=== PATIENT | female | born 1945 | race African-American/Black ===

== ENCOUNTER 2019-02-04 16:12 | Emergency (ER) | payer MEDICAID, MEDICARE ==
[~2019-02-04] VITALS: Ht 160 cm; Wt 91.0 kg
[~2019-02-04 16:12] MED LIST: AMIT25TA9 PO; AMLO2.5T45 PO; ASPI-1159 PO; CELE100C PO; CHOL500010 PO; PRO AIR INHALER INH; RANI150C12 PO
[2019-02-04] MEDS ORDERED: GABA-531 PO (16:34)
[2019-02-04] MEDS ORDERED: HYDROCODONE/ACETAMINOPHEN 5/325MG TABLET PO ONE (20:45)
[2019-02-04] MEDS ORDERED: KETOROLAC 15MG/ML VIAL IM ONE (22:30)
[2019-02-04 22:35] VITALS: BP 142/71
== END 2019-02-04 22:39 | disposition home or self-care (01) ==
LOC: ER 16:12
DX: G89.29 Other chronic pain (principal); M54.5 Low back pain; M25.551 Pain in right hip
CPT/HCPCS: 73502; 96372; 99283; J1885

== ENCOUNTER 2019-10-23 06:53 | Inpatient (IN) | payer MEDICARE, BC ==
[~2019-10-23] VITALS: Ht 162.6 cm; Wt 90.7 kg
[2019-10-23] VITALS (15 sets, daily range): BP systolic 96–157; BP diastolic 39–155
[~2019-10-23 06:53] MED LIST changes: -AMIT25TA9 PO; -ASPI-1159 PO; +ASPI-1497 PO; -CELE100C PO; +CYCL5TAB PO; +DULO60CA64 PO; +GABA-531 PO; +LACTATED RINGERS 1,000 ML IV SCH; +TRAZ150T78 MT
[2019-10-23] MEDS ORDERED: LIDOCAINE HCL/EPINEPHRINE 1%-EPI 1:100,000 20 ML VIAL ONE (07:39)
[2019-10-23] MEDS ORDERED: BACITRACIN 50,000 UNITS/VIAL ONE (07:39)
[2019-10-23] MEDS ORDERED: THROMBIN (BOVINE) 5000 UNITS/VIAL TOP ONE (07:39)
[2019-10-23 08:31] LABS: PARTIAL THROMBOPLASTIN TIME 25.9 sec (23.4-31.0); PROTHROMBIN TIME 10.5 sec (9.6-11.0)
[2019-10-23] MEDS ORDERED: MIDAZOLAM HCL 2 MG/2 ML VIAL ONE (08:37)
[2019-10-23] MEDS ORDERED: ROCURONIUM BROMIDE 10MG/ML VIAL 5ML IV ONE (08:37)
[2019-10-23] MEDS ORDERED: FENTANYL CITRATE/PF 50MCG/ML 2ML VIAL ONE (08:37)
[2019-10-23] MEDS ORDERED: PROPOFOL 200MG/20ML VIAL IV ONE (08:37)
[2019-10-23] MEDS ORDERED: ONDANSETRON HCL 4MG/2ML INJ IV PRN (11:45)
[2019-10-23] MEDS ORDERED: LABETALOL 5MG/ML SYR 20 MG/4 ML SYRINGE IV PRN (11:45)
[2019-10-23] MEDS ORDERED: MEPERIDINE HCL/PF 25MG/ML CPJ IV PRN (11:45)
[2019-10-23] MEDS ORDERED: HYDROMORPHONE HCL/PF 2MG/ML CPJ IV PRN (11:45)
[2019-10-23] MEDS ORDERED: NALOXONE INJ IV PRN (13:45)
[2019-10-23] MEDS ORDERED: ONDANSETRON INJ IV PRN (14:00)
[2019-10-23] MEDS ORDERED: IPRATROPIUM/ALBUTEROL 0.5-3(2.5)MG/3ML NEB HHN PRN (14:15)
[2019-10-23] MEDS ORDERED: LACTULOSE 20G/30ML UDC PO PRN (14:30)
[2019-10-23] MEDS ORDERED: CLONIDINE 0.1MG TABLET PO PRN (14:30)
[2019-10-23] MEDS: MORPHINE SULFATE 2 MG/ML CPJ (NOT FOR IM USE) IV PRN ×2 (14:31→21:09)
[2019-10-23] MEDS ORDERED: HYDROMORPHONE PCA 10MG/50ML IV PRN (14:45)
[2019-10-23] MEDS: DIPHENHYDRAMINE 50MG/ML VIAL IV PRN ×2 (15:22→21:09)
[2019-10-23] MEDS: DEXT 5%/0.45% NACL KCL 20MEQ/L 1,000 ML IV SCH (16:35)
[2019-10-23] MEDS: CEFAZOLIN 1000MG PREMIX 50 ML IV SCH (16:35)
[2019-10-23] MEDS: MONTELUKAST SODIUM 10MG TABLET PO SCH (16:35)
[2019-10-23] MEDS: IPRATROPIUM/ALBUTEROL 0.5-3(2.5)MG/3ML NEB HHN SCH (20:07)
[2019-10-23] MEDS: FLUTICASONE PROPIONATE 50MCG/SPRAY BOTTLE BOTHNSTRLS SCH (21:09)
[2019-10-24] VITALS (83 sets, daily range): BP systolic 93–171; BP diastolic 40–112
[2019-10-24] MEDS: CEFAZOLIN 1000MG PREMIX 50 ML IV SCH ×3 (01:07→19:08)
[2019-10-24] MEDS: IPRATROPIUM/ALBUTEROL 0.5-3(2.5)MG/3ML NEB HHN SCH ×3 (02:32→14:38)
[2019-10-24] MEDS: DIPHENHYDRAMINE 50MG/ML VIAL IV PRN (05:29)
[2019-10-24] MEDS: MORPHINE SULFATE 2 MG/ML CPJ (NOT FOR IM USE) IV PRN (05:30)
[2019-10-24] MEDS: DEXT 5%/0.45% NACL KCL 20MEQ/L 1,000 ML IV SCH ×2 (05:30→17:00)
[2019-10-24 07:44] LABS: LYMPHOCYTES % 11.3 % (20.0-50.0); MEAN CORPUSCULAR VOLUME 71.5 fL (81.0-99.0); MEAN PLATELET VOLUME 11.3 fl (7.4-10.4); MONOCYTES % 5.8 % (2.0-8.0); NEUTROPHILS % 82.9 % (40.0-76.0); PLATELET 192 x1000/uL (130-400); RED BLOOD CELL COUNT 2.92 mill/uL (4.2-5.4)
[2019-10-24 07:50] LABS: HEMOGLOBIN. 6.7 g/dL (12.0-16.0)
[2019-10-24 07:51] LABS: CHLORIDE 107 mEq/L (98-107); HEMATOCRIT. 20.9 % (36.0-48.0)
[2019-10-24] MEDS: FLUTICASONE PROPIONATE 50MCG/SPRAY BOTTLE BOTHNSTRLS SCH ×2 (09:00→21:35)
[2019-10-24] MEDS: DOCUSATE SODIUM 250MG CAPSULE PO SCH (09:32)
[2019-10-24] MEDS ORDERED: ZOLPIDEM TARTRATE 5MG TABLET PO PRN (10:30)
[2019-10-24 11:20] LABS: HEMATOCRIT 26.4 % (36.0-48.0); HEMOGLOBIN 8.4 g/dL (12.0-16.0)
[2019-10-24 12:15] LABS: TOTAL IRON BINDING CAPACITY 269 ug/dL (250-450)
[2019-10-24] MEDS: MONTELUKAST SODIUM 10MG TABLET PO SCH (17:00)
[2019-10-24 18:11] LABS: HEMATOCRIT 29.5 % (36.0-48.0); HEMOGLOBIN 9.4 g/dL (12.0-16.0)
[2019-10-24] MEDS: FERROUS SULFATE 325MG TABLET PO SCH (19:08)
[2019-10-25] VITALS (17 sets, daily range): BP systolic 90–136; BP diastolic 48–95
[2019-10-25] MEDS: MORPHINE SULFATE 2 MG/ML CPJ (NOT FOR IM USE) IV PRN ×2 (00:05→03:40)
[2019-10-25 05:58] LABS: CHLORIDE 104 mEq/L (98-107)
[2019-10-25 06:31] LABS: BASOPHILS % 0.3 % (0.0-2.0); EOSINOPHILS % 0.3 % (0.0-5.0); HEMATOCRIT. 27.1 % (36.0-48.0); HEMOGLOBIN. 8.5 g/dL (12.0-16.0); LYMPHOCYTES % 24.7 % (20.0-50.0); MEAN CORPUSCULAR HEMOGLOBIN 22.6 pg (28.0-32.0); MEAN CORPUSCULAR VOLUME 71.6 fL (81.0-99.0); MEAN PLATELET VOLUME 11.5 fl (7.4-10.4); MONOCYTES % 7.9 % (2.0-8.0); NEUTROPHILS % 66.8 % (40.0-76.0); PLATELET 177 x1000/uL (130-400); RED BLOOD CELL COUNT 3.78 mill/uL (4.2-5.4); RED CELL DISTRIBUTION WIDTH 15.5 % (11.6-14.6)
[2019-10-25] MEDS: DEXT 5%/0.45% NACL KCL 20MEQ/L 1,000 ML IV SCH ×2 (08:00→21:10)
[2019-10-25] MEDS: FLUTICASONE PROPIONATE 50MCG/SPRAY BOTTLE BOTHNSTRLS SCH ×2 (08:30→21:10)
[2019-10-25] MEDS: FERROUS SULFATE 325MG TABLET PO SCH ×2 (08:31→16:21)
[2019-10-25] MEDS: DOCUSATE SODIUM 250MG CAPSULE PO SCH (08:31)
[2019-10-25] MEDS: IPRATROPIUM/ALBUTEROL 0.5-3(2.5)MG/3ML NEB HHN SCH ×2 (10:29→14:50)
[2019-10-25] MEDS: MONTELUKAST SODIUM 10MG TABLET PO SCH (16:21)
[2019-10-26] VITALS: BP 124/59
[2019-10-26 04:00] VITALS: BP 118/61
[2019-10-26] MEDS: DEXT 5%/0.45% NACL KCL 20MEQ/L 1,000 ML IV SCH (06:35)
[2019-10-26 06:45] LABS: BASOPHILS % 0.5 % (0.0-2.0); EOSINOPHILS % 1.8 % (0.0-5.0); HEMATOCRIT. 30.6 % (36.0-48.0); HEMOGLOBIN. 9.5 g/dL (12.0-16.0); LYMPHOCYTES % 25.1 % (20.0-50.0); MEAN CORPUSCULAR HEMOGLOBIN 22.5 pg (28.0-32.0); MEAN CORPUSCULAR VOLUME 72.2 fL (81.0-99.0); MEAN PLATELET VOLUME 10.4 fl (7.4-10.4); MONOCYTES % 7.3 % (2.0-8.0); NEUTROPHILS % 65.3 % (40.0-76.0); PLATELET 184 x1000/uL (130-400); RED BLOOD CELL COUNT 4.23 mill/uL (4.2-5.4); RED CELL DISTRIBUTION WIDTH 15.2 % (11.6-14.6)
[2019-10-26 06:54] LABS: CHLORIDE 104 mEq/L (98-107)
[2019-10-26 06:59] LABS: PHOSPHORUS 2.8 mg/dL (2.5-4.9)
[2019-10-26 08:00] VITALS: BP 118/50
[2019-10-26] MEDS ORDERED: LACTULOSE 20G/30ML UDC PO SCH (08:30)
[2019-10-26] MEDS ORDERED: ZOLPIDEM TARTRATE 5MG TABLET PO PRN (08:30)
[2019-10-26] MEDS: FLUTICASONE PROPIONATE 50MCG/SPRAY BOTTLE BOTHNSTRLS SCH (09:32)
[2019-10-26] MEDS: FERROUS SULFATE 325MG TABLET PO SCH ×2 (09:32→17:15)
[2019-10-26] MEDS: DOCUSATE SODIUM 250MG CAPSULE PO SCH (09:32)
[2019-10-26 12:00] VITALS: BP 115/64
[2019-10-26 16:00] VITALS: BP_SYST 122; BP_SYST 128; BP_DIAS 66
[2019-10-26] MEDS: MONTELUKAST SODIUM 10MG TABLET PO SCH (17:15)
[2019-10-26 20:00] VITALS: BP 129/70
[2019-10-27] VITALS: BP 98/53
[2019-10-27] MEDS: IPRATROPIUM/ALBUTEROL 0.5-3(2.5)MG/3ML NEB HHN SCH ×2 (00:56→22:15)
[2019-10-27 04:00] VITALS: BP 116/47
[2019-10-27 08:00] VITALS: BP 114/58
[2019-10-27] MEDS: DOCUSATE SODIUM 250MG CAPSULE PO SCH (08:55)
[2019-10-27] MEDS: FERROUS SULFATE 325MG TABLET PO SCH ×2 (08:55→17:36)
[2019-10-27] MEDS ORDERED: TRAMADOL 50MG TABLET PO NR (11:30)
[2019-10-27 12:00] VITALS: BP 126/68
[2019-10-27 16:00] VITALS: BP 131/63
[2019-10-27] MEDS: MONTELUKAST SODIUM 10MG TABLET PO SCH (17:36)
[2019-10-27] MEDS: TRAMADOL 50MG TABLET PO SCH (17:37)
[2019-10-27] MEDS: PREGABALIN 50 MG CAPSULE PO SCH (20:54)
[2019-10-28] VITALS: BP 114/59
[2019-10-28] MEDS: TRAMADOL 50MG TABLET PO SCH ×2 (02:11→09:04)
[2019-10-28 04:00] VITALS: BP 103/59
[2019-10-28] MEDS: IPRATROPIUM/ALBUTEROL 0.5-3(2.5)MG/3ML NEB HHN SCH ×2 (04:00→09:52)
[2019-10-28 08:00] VITALS: BP 122/65
[2019-10-28] MEDS: FERROUS SULFATE 325MG TABLET PO SCH (09:04)
[2019-10-28] MEDS: PREGABALIN 50 MG CAPSULE PO SCH (09:04)
[2019-10-28] MEDS: DOCUSATE SODIUM 250MG CAPSULE PO SCH (09:05)
[2019-10-28 10:56] VITALS: BP 134/82
== END 2019-10-28 12:18 | disposition home or self-care (01) | DRG 516 ==
LOC: OR 06:53 → MICUNO 06:54 → MICUSO 10-24 19:20 → 6EST 10-25 15:40
PROVIDERS: ADMIT Internal Medicine Geriatric Medicine; ATTEND Internal Medicine Geriatric Medicine
PROC: 0SP004Z Removal of Internal Fixation Device from Lumbar Vertebral Joint, Open Approach (ICD-10-PCS; principal; 2019-10-23)
PROC: 01NB0ZZ Release Lumbar Nerve, Open Approach (ICD-10-PCS; 2019-10-23)
PROC: BR191ZZ Fluoroscopy of Lumbar Spine using Low Osmolar Contrast (ICD-10-PCS; 2019-10-23)
DX: T84.226A Displacement of internal fixation device of vertebrae, initial encounter (principal); G82.20 Paraplegia, unspecified; M48.061 Spinal stenosis, lumbar region without neurogenic claudication; M19.90 Unspecified osteoarthritis, unspecified site; I10 Essential (primary) hypertension; E78.5 Hyperlipidemia, unspecified; D64.9 Anemia, unspecified; G96.19 Other disorders of meninges, not elsewhere classified; Z96.651 Presence of right artificial knee joint; K59.09 Other constipation; R26.89 Other abnormalities of gait and mobility; R73.9 Hyperglycemia, unspecified; Y83.8 Other surgical procedures as the cause of abnormal reaction of the patient, or of later complication, without mention of misadventure at the time of the procedure; J45.909 Unspecified asthma, uncomplicated; G47.00 Insomnia, unspecified; Z82.49 Family history of ischemic heart disease and other diseases of the circulatory system; Z90.49 Acquired absence of other specified parts of digestive tract; Z90.89 Acquired absence of other organs; Z98.51 Tubal ligation status; Z79.899 Other long term (current) drug therapy; Z98.1 Arthrodesis status; Z88.5 Allergy status to narcotic agent; Y92.89 Other specified places as the place of occurrence of the external cause
CPT/HCPCS: 36415; 72100; 76000; 80048; 83540; 83550; 83735; 84100; 85014; 85018; 85025; 86850; 86870; 86900; 86920; 88300; 88304; 88311; 93970; 94640; 95863; 95925; 95926; 95928; 95929; 97116; 97162; 97166; 97530; J0690; J1170; J1200; J2250; J2270; J2405; J2704; J2710; J3010; J3490

== ENCOUNTER → 2020-12-17 | Outpatient (CLI) | payer MEDICARE ==
[~2020-12-17] MED LIST changes: -CHOL500010 PO; -GABA-531 PO; +GABA-532 PO; -LACTATED RINGERS 1,000 ML IV SCH; -RANI150C12 PO
== END | disposition home or self-care (01) ==
LOC: LAB 11:08
PROVIDERS: ATTEND Neurological Surgery
DX: Z20.822 Contact with and (suspected) exposure to COVID-19 (principal)
CPT/HCPCS: 87426

== ENCOUNTER 2020-12-18 05:05 | Inpatient (IN) | payer MEDICARE, BC ==
[2020-12-18] VITALS (57 sets, daily range): BP systolic 90–140; BP diastolic 36–125
[~2020-12-18] VITALS: Ht 162.6 cm; Wt 93.4 kg
[2020-12-18] MEDS ORDERED: LACTATED RINGERS 1,000 ML IV SCH (05:30)
[2020-12-18] MEDS ORDERED: LIDOCAINE HCL/EPINEPHRINE 1%-EPI 1:100,000 20 ML VIAL ONE (05:32)
[2020-12-18] MEDS ORDERED: THROMBIN (BOVINE) 5000 UNITS/VIAL TOP ONE (05:33)
[2020-12-18] MEDS ORDERED: VANCOMYCIN HCL 1 GM/VIAL ONE (06:47)
[2020-12-18] MEDS ORDERED: GENTAMICIN SULF 40MG/ML 2ML VIAL ONE (06:47)
[2020-12-18] MEDS ORDERED: FENTANYL CITRATE/PF 50MCG/ML 2ML VIAL ONE (07:05)
[2020-12-18] MEDS ORDERED: MIDAZOLAM HCL 2 MG/2 ML VIAL ONE (07:06)
[2020-12-18] MEDS ORDERED: ROCURONIUM BROMIDE 10MG/ML VIAL 5ML IV ONE (07:06)
[2020-12-18] MEDS ORDERED: NEOSTIGMINE METHYLSULFATE 1MG/ML 10 ML VIAL ONE (07:06)
[2020-12-18] MEDS ORDERED: GLYCOPYRROLATE 0.2 MG/ML 2ML VIAL ONE ×3 (07:06→10:22)
[2020-12-18] MEDS ORDERED: PROPOFOL 200MG/20ML VIAL IV ONE (07:06)
[2020-12-18] MEDS ORDERED: DEXAMETHASONE 4MG/ML 1ML VIAL ONE (07:08)
[2020-12-18] MEDS ORDERED: LABETALOL HCL 5MG/ML VIAL 20ML IV ONE (07:36)
[2020-12-18] MEDS ORDERED: CEFAZOLIN SODIUM 1000MG/VIAL ONE (07:36)
[2020-12-18] MEDS ORDERED: ONDANSETRON HCL 4MG/2ML INJ ONE (07:36)
[2020-12-18] MEDS ORDERED: LIDOCAINE HCL/PF 1% 10 MG/ML 5ML VIAL ONE (07:36)
[2020-12-18] MEDS ORDERED: SODIUM CHLORIDE 0.9% 10ML VIAL ONE (07:36)
[2020-12-18] MEDS ORDERED: HYDROMORPHONE HCL/PF 2MG/ML (OR) ONE (08:05)
[2020-12-18] MEDS ORDERED: LABETALOL 5MG/ML SYR 20 MG/4 ML SYRINGE IV PRN (08:15)
[2020-12-18] MEDS ORDERED: HYDROMORPHONE HCL/PF 2MG/ML CPJ IV PRN (08:15)
[2020-12-18] MEDS ORDERED: MEPERIDINE HCL/PF 25MG/ML CPJ IV PRN (08:15)
[2020-12-18] MEDS ORDERED: ONDANSETRON HCL 4MG/2ML INJ IV PRN ×2 (08:15→12:30)
[2020-12-18] MEDS ORDERED: MORPHINE SULFATE 4 MG/ML CPJ (NOT FOR IM USE) IV PRN (10:30)
[2020-12-18] MEDS ORDERED: ONDANSETRON INJ IV PRN (12:15)
[2020-12-18] MEDS ORDERED: HYDROMORPHONE PCA 10MG/50ML IV PRN (12:15)
[2020-12-18] MEDS ORDERED: NALOXONE INJ IV PRN (12:15)
[2020-12-18] MEDS ORDERED: IPRATROPIUM/ALBUTEROL 0.5-3(2.5)MG/3ML NEB HHN PRN (12:30)
[2020-12-18] MEDS: DEXT 5%/LACTATED RINGERS 1,000 ML IV SCH ×3 (12:55→23:30)
[2020-12-18] MEDS: NICARDIPINE 100 MG in SODIUM CHLORIDE 0.9% 60 ML IV PRN (12:56)
[2020-12-18] MEDS ORDERED: MORPHINE SULFATE 2 MG/ML CPJ (NOT FOR IM USE) IV NR (13:00)
[2020-12-18] MEDS ORDERED: CEFAZOLIN SODIUM 1000MG/VIAL IV SCH (14:00)
[2020-12-18] MEDS: CEFAZOLIN 1000MG PREMIX 50 ML IV SCH ×2 (16:13→23:30)
[2020-12-18] MEDS: MONTELUKAST SODIUM 10MG TABLET PO SCH (16:13)
[2020-12-18] MEDS: IPRATROPIUM/ALBUTEROL 0.5-3(2.5)MG/3ML NEB HHN SCH ×2 (16:19→20:43)
[2020-12-18] MEDS: TRAZODONE HCL 50MG TABLET PO SCH (20:42)
[2020-12-18] MEDS: HYDROCODONE/ACETAMINOPHEN 5/325MG TABLET PO PRN (20:42)
[2020-12-18] MEDS: DIPHENHYDRAMINE INJ IV PRN (20:42)
[2020-12-18 21:06] LABS: HEMATOCRIT 27.1 % (36.0-48.0); HEMOGLOBIN 8.8 g/dL (12.0-16.0); MEAN CORPUSCULAR HEMOGLOBIN 22.1 pg (28.0-32.0); MEAN CORPUSCULAR VOLUME 68.5 fL (81.0-99.0); PLATELET 216 x1000/uL (130-400); RED BLOOD CELL COUNT 3.96 mill/uL (4.2-5.4); RED CELL DISTRIBUTION WIDTH 16.8 % (11.6-14.6)
[2020-12-18 21:22] LABS: CHLORIDE 107 mEq/L (98-107)
[2020-12-18 21:31] LABS: T4 FREE 1.12 ng/dL (0.76-1.46)
[2020-12-19] VITALS (91 sets, daily range): BP systolic 82–149; BP diastolic 17–122
[2020-12-19] MEDS: IPRATROPIUM/ALBUTEROL 0.5-3(2.5)MG/3ML NEB HHN SCH ×6 (00:48→21:07)
[2020-12-19 04:36] LABS: CHLORIDE 107 mEq/L (98-107)
[2020-12-19 04:40] LABS: HEMATOCRIT. 25.5 % (36.0-48.0); HEMOGLOBIN. 7.8 g/dL (12.0-16.0); LYMPHOCYTES % 10.1 % (20.0-50.0); MEAN CORPUSCULAR HEMOGLOBIN 21.1 pg (28.0-32.0); MEAN CORPUSCULAR VOLUME 68.6 fL (81.0-99.0); MEAN PLATELET VOLUME 10.1 fl (7.4-10.4); MONOCYTES % 4.8 % (2.0-8.0); NEUTROPHILS % 85.1 % (40.0-76.0); PLATELET 204 x1000/uL (130-400); RED BLOOD CELL COUNT 3.71 mill/uL (4.2-5.4); RED CELL DISTRIBUTION WIDTH 16.5 % (11.6-14.6)
[2020-12-19] MEDS: PANTOPRAZOLE 40MG DR TABLET PO SCH (06:16)
[2020-12-19] MEDS: DEXT 5%/LACTATED RINGERS 1,000 ML IV SCH ×3 (06:17→20:05)
[2020-12-19] MEDS: DOCUSATE SODIUM SUGAR FREE 100MG/10ML UDC NG SCH (08:44)
[2020-12-19] MEDS: DULOXETINE HCL 30MG DR CAPSULE PO SCH (08:44)
[2020-12-19] MEDS: FLUTICASONE PROPIONATE 50MCG/SPRAY BOTTLE BOTHNSTRLS SCH (08:44)
[2020-12-19] MEDS: AMLODIPINE 5MG TABLET PO SCH (08:44)
[2020-12-19] MEDS: NICARDIPINE 100 MG in SODIUM CHLORIDE 0.9% 60 ML IV PRN (08:45)
[2020-12-19] MEDS ORDERED: HYDROMORPHONE HCL/PF 2MG/ML CPJ IV NR (09:00)
[2020-12-19] MEDS ORDERED: ENOXAPARIN 30MG/0.3ML SYR SUBCUT SCH (09:00)
[2020-12-19] MEDS: DIPHENHYDRAMINE INJ IV PRN (09:03)
[2020-12-19 10:00] LABS: TOTAL IRON BINDING CAPACITY 288 ug/dL (250-450)
[2020-12-19] MEDS: CEFAZOLIN 1000MG PREMIX 50 ML IV SCH ×2 (10:07→15:18)
[2020-12-19] MEDS: HYDROCODONE/ACETAMINOPHEN 5/325MG TABLET PO PRN (11:37)
[2020-12-19] MEDS: MONTELUKAST SODIUM 10MG TABLET PO SCH (16:03)
[2020-12-19] MEDS: TRAZODONE HCL 50MG TABLET PO SCH (20:59)
[2020-12-20] VITALS (40 sets, daily range): BP systolic 96–147; BP diastolic 47–100
[2020-12-20] MEDS: IPRATROPIUM/ALBUTEROL 0.5-3(2.5)MG/3ML NEB HHN SCH ×6 (00:15→21:00)
[2020-12-20] MEDS: CEFAZOLIN 1000MG PREMIX 50 ML IV SCH ×2 (00:38→08:32)
[2020-12-20 04:47] LABS: BASOPHILS % 0.2 % (0.0-2.0); EOSINOPHILS % 0.3 % (0.0-5.0); HEMATOCRIT. 32.4 % (36.0-48.0); LYMPHOCYTES % 20.2 % (20.0-50.0); MEAN CORPUSCULAR HEMOGLOBIN 22.1 pg (28.0-32.0); MEAN CORPUSCULAR VOLUME 71.2 fL (81.0-99.0); MEAN PLATELET VOLUME 10.4 fl (7.4-10.4); MONOCYTES % 7.2 % (2.0-8.0); NEUTROPHILS % 72.1 % (40.0-76.0); PLATELET 213 x1000/uL (130-400); RED BLOOD CELL COUNT 4.54 mill/uL (4.2-5.4); RED CELL DISTRIBUTION WIDTH 18.1 % (11.6-14.6)
[2020-12-20 04:52] LABS: CHLORIDE 101 mEq/L (98-107)
[2020-12-20] MEDS: DEXT 5%/LACTATED RINGERS 1,000 ML IV SCH (05:34)
[2020-12-20] MEDS: PANTOPRAZOLE 40MG DR TABLET PO SCH (05:34)
[2020-12-20] MEDS: HYDROCODONE/ACETAMINOPHEN 5/325MG TABLET PO PRN (07:42)
[2020-12-20] MEDS: DIPHENHYDRAMINE INJ IV PRN (07:43)
[2020-12-20] MEDS: DOCUSATE SODIUM SUGAR FREE 100MG/10ML UDC NG SCH (09:10)
[2020-12-20] MEDS: AMLODIPINE 5MG TABLET PO SCH (09:10)
[2020-12-20] MEDS: DULOXETINE HCL 30MG DR CAPSULE PO SCH (09:10)
[2020-12-20] MEDS: FLUTICASONE PROPIONATE 50MCG/SPRAY BOTTLE BOTHNSTRLS SCH (09:11)
[2020-12-20] MEDS: MONTELUKAST SODIUM 10MG TABLET PO SCH (17:58)
[2020-12-20] MEDS: TRAZODONE HCL 50MG TABLET PO SCH (23:06)
[2020-12-21] VITALS: BP 113/52
[2020-12-21] MEDS: IPRATROPIUM/ALBUTEROL 0.5-3(2.5)MG/3ML NEB HHN SCH ×6 (00:37→20:41)
[2020-12-21 04:00] VITALS: BP 134/75
[2020-12-21] MEDS: DEXT 5%/LACTATED RINGERS 1,000 ML IV SCH ×3 (04:33→22:27)
[2020-12-21] MEDS: PANTOPRAZOLE 40MG DR TABLET PO SCH (06:22)
[2020-12-21 06:44] LABS: CHLORIDE 101 mEq/L (98-107)
[2020-12-21 06:52] LABS: BASOPHILS % 0.3 % (0.0-2.0); EOSINOPHILS % 1.2 % (0.0-5.0); HEMATOCRIT. 31.7 % (36.0-48.0); LYMPHOCYTES % 12.4 % (20.0-50.0); MEAN CORPUSCULAR HEMOGLOBIN 22.6 pg (28.0-32.0); MEAN CORPUSCULAR VOLUME 71.3 fL (81.0-99.0); MEAN PLATELET VOLUME 10.5 fl (7.4-10.4); MONOCYTES % 5.6 % (2.0-8.0); NEUTROPHILS % 80.5 % (40.0-76.0); PLATELET 213 x1000/uL (130-400); RED BLOOD CELL COUNT 4.45 mill/uL (4.2-5.4); RED CELL DISTRIBUTION WIDTH 17.5 % (11.6-14.6)
[2020-12-21 08:00] VITALS: BP 115/76
[2020-12-21] MEDS: FLUTICASONE PROPIONATE 50MCG/SPRAY BOTTLE BOTHNSTRLS SCH (09:06)
[2020-12-21] MEDS: DULOXETINE HCL 30MG DR CAPSULE PO SCH (09:07)
[2020-12-21] MEDS: DOCUSATE SODIUM SUGAR FREE 100MG/10ML UDC NG SCH (09:07)
[2020-12-21] MEDS: AMLODIPINE 5MG TABLET PO SCH (09:08)
[2020-12-21] MEDS ORDERED: BENZONATATE 100MG CAPSULE PO NR (11:30)
[2020-12-21] MEDS ORDERED: CEFTRIAXONE 1 G PREMIX 50 ML IV SCH (11:30)
[2020-12-21] MEDS ORDERED: LACTULOSE 20G/30ML UDC PO PRN (11:30)
[2020-12-21 12:00] VITALS: BP 134/70
[2020-12-21] MEDS: CEFTRIAXONE 1,000 MG in DEXTROSE 5% WATER 50 ML IV SCH (13:53)
[2020-12-21] MEDS ORDERED: GUAIFENESIN-DM 200MG-20MG/10ML UDC PO PRN (14:15)
[2020-12-21] MEDS ORDERED: BENZONATATE 100MG CAPSULE PO PRN (15:00)
[2020-12-21 16:00] VITALS: BP 122/65
[2020-12-21] MEDS ORDERED: POTASSIUM CHLORIDE 20MEQ TABLET SR PO NR (16:15)
[2020-12-21] MEDS: MONTELUKAST SODIUM 10MG TABLET PO SCH (17:52)
[2020-12-21 20:00] VITALS: BP 132/58
[2020-12-21] MEDS: TRAZODONE HCL 50MG TABLET PO SCH (20:20)
[2020-12-21] MEDS: BUDESONIDE 0.5MG/2ML NEB HHN SCH (20:40)
[2020-12-21] MEDS ORDERED: ZOLPIDEM TARTRATE 5MG TABLET PO PRN (21:00)
[2020-12-22] MEDS: IPRATROPIUM/ALBUTEROL 0.5-3(2.5)MG/3ML NEB HHN SCH ×4 (00:33→13:59)
[2020-12-22 04:00] VITALS: BP 145/83
[2020-12-22] MEDS: PANTOPRAZOLE 40MG DR TABLET PO SCH (06:44)
[2020-12-22 08:00] VITALS: BP 149/80
[2020-12-22] MEDS: DOCUSATE SODIUM SUGAR FREE 100MG/10ML UDC NG SCH ×2 (08:27→09:00)
[2020-12-22] MEDS: DULOXETINE HCL 30MG DR CAPSULE PO SCH (08:28)
[2020-12-22] MEDS: AMLODIPINE 5MG TABLET PO SCH (08:28)
[2020-12-22] MEDS: DEXT 5%/LACTATED RINGERS 1,000 ML IV SCH (08:31)
[2020-12-22] MEDS: FLUTICASONE PROPIONATE 50MCG/SPRAY BOTTLE BOTHNSTRLS SCH (08:32)
[2020-12-22] MEDS ORDERED: BISACODYL 5MG TABLET PO SCH (09:00)
[2020-12-22] MEDS: BUDESONIDE 0.5MG/2ML NEB HHN SCH (09:17)
[2020-12-22 12:00] VITALS: BP 157/81
[2020-12-22] MEDS: CEFTRIAXONE 1,000 MG in DEXTROSE 5% WATER 50 ML IV SCH (12:47)
[2020-12-22 16:00] VITALS: BP 150/81
[2020-12-22 16:34] VITALS: BP 149/80
== END 2020-12-22 17:35 | disposition home health service (06) | DRG 460 ==
LOC: OR 05:05 → MICUNO 05:06 → 6EST 12-20 11:27
PROVIDERS: ADMIT Internal Medicine Geriatric Medicine; ATTEND Internal Medicine Geriatric Medicine
PROC: 0RGA071 Fusion of Thoracolumbar Vertebral Joint with Autologous Tissue Substitute, Posterior Approach, Posterior Column, Open Approach (ICD-10-PCS; principal; 2020-12-18)
PROC: 01N80ZZ Release Thoracic Nerve, Open Approach (ICD-10-PCS; 2020-12-18)
PROC: 01NB0ZZ Release Lumbar Nerve, Open Approach (ICD-10-PCS; 2020-12-18)
PROC: 30233N1 Transfusion of Nonautologous Red Blood Cells into Peripheral Vein, Percutaneous Approach (ICD-10-PCS; 2020-12-19)
DX: M48.05 Spinal stenosis, thoracolumbar region (principal); J98.11 Atelectasis; G82.20 Paraplegia, unspecified; E46 Unspecified protein-calorie malnutrition; D62 Acute posthemorrhagic anemia; M47.815 Spondylosis without myelopathy or radiculopathy, thoracolumbar region; I10 Essential (primary) hypertension; G62.9 Polyneuropathy, unspecified; E11.9 Type 2 diabetes mellitus without complications; E78.5 Hyperlipidemia, unspecified; J45.909 Unspecified asthma, uncomplicated; M54.15 Radiculopathy, thoracolumbar region; F51.04 Psychophysiologic insomnia; Z79.899 Other long term (current) drug therapy; K59.04 Chronic idiopathic constipation; R26.89 Other abnormalities of gait and mobility; Z88.5 Allergy status to narcotic agent; Z68.35 Body mass index [BMI] 35.0-35.9, adult; M15.9 Polyosteoarthritis, unspecified; R10.32 Left lower quadrant pain; D50.9 Iron deficiency anemia, unspecified
CPT/HCPCS: 36415; 71045; 72070; 72148; 76000; 80048; 80053; 83540; 83550; 84439; 84443; 85025; 85027; 86850; 86900; 86920; 87426; 88304; 88311; 94640; 97162; 97166; 97530; 97535; C1713; C1893; J0690; J0696; J1100; J1170; J1200; J1580; J2250; J2270; J2405; J2704; J2710; J3010; J3370; J3490; J7050; J7060; J7121; J7626; P9016; C1762